=== PATIENT | female | born 1975 | race Two or more races ===

== ENCOUNTER 2017-03-05 22:50 | Emergency (ER) | payer OTHER ==
--- NOTE | 2017-03-05 22:55 | PDOC ---
History of Present Illness - General Chief Complaint: Toothache Stated Complaint: TOOTH ABSCESS Time Seen by Provider: 03/05/17 22:55 History Source: Patient Exam Limitations: No Limitations - History of Present Illness Initial Comments: 03/05/17 23:22 This is a 41-year-old female who comes in complaining of a infected dental carry. Patient said that she has been seeing a dentist at a dental clinic and they cannot see the dentist until Wednesday. Patient has had increased pain and swelling and discomfort in her mouth for 2 days. Patient took ibuprofen 800 mg 3 times a day with out relief of the pain. Patient has subjective fever but is afebrile here PAST MEDICAL HISTORY: no significant history PAST SURGICAL HISTORY: no significant history FAMILY HISTORY: no pertinant history SOCIAL HISTORY: Pt lives with family and is employed. MEDICATIONS: reviewed ALLERGIES: As per nursing notes Review of Systems General: No fevers or chills, no weakness, no weight loss HEENT: No change in vision. No sore throat,. No ear pain, toothache and mouth pain CardioVascular: No chest pain or shortness of breath Respiratory:No cough, or wheezing. Gastrointestinal: no nausea, vomitting, diarrhea or constipation, No rectal bleeding Genitourinary: No dysuria, hematuria, or frequency Musculoskeletal: No joint or muscle pain or swelling Neurologic: No headache, vertigo, dizziness or loss of consciousness Psychiatric: nor depression Skin: No rashes or easy bruising Endocrine: no increased thirst or abnormal weight change Allergic: no skin or latex allergy All other systems reviewed and normal GENERAL: The patient is awake, alert, and fully oriented, in no acute distress. HEAD: Normal with no signs of trauma. EYES: Pupils equal, round and reactive to light, extraocular movements intact, sclera anicteric, conjunctiva clear. MOUTH/TEETH: There is very poor dentition, left lower molars are nearly completely destroyed by caries there is a and associated peridental infection but no palpable collection or abscess. EXTREMITIES: Normal range of motion, no edema. NEUROLOGICAL: Normal speech, normal gait. PSYCH: Normal mood, normal affect. SKIN: Warm, Dry, normal turgor, no rashes or lesions noted. Assessment and plan: This is a 41-year-old female with poor dentition and a oral infection secondary to the poor dentition. Patient started on clindamycin, given Toradol and Percocet for pain as discharged home. Patient has an appointment for Wednesday to see her dentist at the dental clinic. Past History - Past Medical History Allergies/Adverse Reactions: Allergies Allergy/AdvReac Type Severity Reaction Status Date / Time No Known Allergies Allergy Unverified 03/05/17 22:55 Home Medications: Ambulatory Orders Clindamycin [Cleocin -] 300 mg PO Q6HPO #28 capsule 03/05/17 Ibuprofen 800 mg PO TID PRN 03/05/17 Oxycodone HCl/Acetaminophen [Percocet 5-325 mg Tablet] 1 tab PO Q4H PRN #10 tablet MDD 6 03/05/17 *DC/Admit/Observation/Transfer Diagnosis at time of Disposition: Dental caries, Infection of mouth - Discharge Dispostion Disposition: HOME Condition at time of disposition: Stable - Prescriptions Prescriptions: Clindamycin [Cleocin -] 300 mg PO Q6HPO #28 capsule Oxycodone HCl/Acetaminophen [Percocet 5-325 mg Tablet] 1 tab PO Q4H PRN #10 tablet MDD 6 PRN Reason: Pain - Patient Instructions Printed Discharge Instructions: DI for Dental Pain, DI for Tooth Decay Additional Instructions: Make sure you see your dentist on Wednesday For the pain take ibuprofen 8R milligrams 3 times a day with food during the day at nighttime if he needs something stronger you can take 1 Percocet before bed and another one during the night. Return to the emergency department immediately with ANY new, persistent or worsening symptoms. Continue any medications as previously prescribed by your physician. You should follow up with your dentist as soon as possible regarding today's emergency department visit. . Please make sure your dentist reviews the results of your emergency evaluation. Thank you for coming to the Emergency Department today for your care. It was a pleasure to see you today. Please note that your evaluation is INCOMPLETE until you follow-up with your doctor.
[2017-03-05 22:59] VITALS: BP 116/86; PULSE 99; TEMP 98.3; BMI 33.4
[2017-03-05] MEDS ORDERED: KETOROLAC TROMETHAMINE 60 MG/2 ML VIAL IM ONE (23:19)
[2017-03-05] MEDS ORDERED: CLINDAMYCIN HCL 300 MG CAPSULE PO ONE (23:20)
[2017-03-05] MEDS ORDERED: KETOROLAC TROMETHAMINE 60 MG/2 ML VIAL ONE (23:20)
[2017-03-05] MEDS ORDERED: OXYCODONE/APAP 5/325MG COMBO TABLET PO ONE (23:20)
[2017-03-05] MEDS ORDERED: OXYCODONE/APAP 5/325MG COMBO TABLET ONE (23:20)
[2017-03-05] MEDS ORDERED: CLINDAMYCIN HCL 150 MG CAPSULE (FP) ONE (23:21)
== END 2017-03-05 23:34 | disposition home or self-care (01) ==
LOC: FER 22:50
PROC: 3E0233Z Introduction of Anti-inflammatory into Muscle, Percutaneous Approach (ICD-10-PCS; principal; 2017-03-05)
DX: K02.9 Dental caries, unspecified (principal); B99.9 Unspecified infectious disease
CPT/HCPCS: 96372; 99282-25

== ENCOUNTER 2017-04-03 12:35 | Emergency (ER) | payer OTHER ==
--- NOTE | 2017-04-03 12:37 | PDOC ---
History of Present Illness - General Chief Complaint: Nausea/Vomiting Stated Complaint: N/V/D/ ABD PAIN Time Seen by Provider: 04/03/17 12:37 History Source: Patient Exam Limitations: No Limitations - History of Present Illness Initial Comments: 04/03/17 12:37 The patient is a 41-year-old female with a significant past medical history of prediabetes, who presents to the emergency department complaining of nausea, vomiting, diarrhea abdominal pain for the past 11 months. She states that approximately 11 months ago, after she developed symptoms of abdominal pain, nausea, vomiting, diarrhea, and "saw a worm in her stool" she was evaluated by a physician at another hospital and told she "had a parasitic infection." She was given approximately one week of antiparasitic medications and then followed up with her infectious disease specialist. Since that time. She states that her infectious disease specialist is informed her that she has an ongoing parasitic infection, but that she is unsure of the type of parasite. According to the patient, because of the lack of a definitive diagnosis, she has not been treated. The past 11 months, consequently, she has had intermittent abdominal pain, daily nausea, occasional vomiting, daily diarrhea (2-3 episodes of watery stool with occasional mucus). She denies fever, chills, sweats, anorexia, weight loss. She states that she has had an intermittent cough, with intermittent blood- tinged sputum. She denies any rash. 04/03/17 12:51 Past History - Past Medical History Allergies/Adverse Reactions: Allergies Allergy/AdvReac Type Severity Reaction Status Date / Time No Known Allergies Allergy Verified 04/03/17 12:36 Home Medications: Ambulatory Orders NK [No Known Home Medication] 04/03/17 Diabetes: Yes (BORDERLINE) - Psycho/Social/Smoking Cessation Hx Anxiety: No Suicidal Ideation: No Smoking History: Never smoked Review of Systems - Review of Systems Comments:: 04/03/17 12:38 CONSTITUTIONAL: Absent: fever, chills, diaphoresis, generalized weakness, malaise, loss of appetite HEENT: Absent: rhinorrhea, nasal congestion, throat pain, throat swelling, difficulty swallowing, mouth swelling, ear pain, eye pain, visual Changes CARDIOVASCULAR: Absent: chest pain, loss of consciousness, palpitations, irregular heart rate, peripheral edema RESPIRATORY: Present: Cough Absent: cough, dyspnea with exertion, orthopnea, wheezing, stridor, hemoptysis GASTROINTESTINAL: Present: see HPI Absent: abdominal distension, constipation, melena, hematochezia GENITOURINARY: Absent: dysuria, frequency, urgency, hesitancy, hematuria, flank pain, genital pain MUSCULOSKELETAL: Absent: myalgia, arthralgia, joint swelling SKIN: Absent: rash, itching, pallor HEMATOLOGIC/IMMUNOLOGIC: Absent: easy bleeding, easy bruising, lymphadenopathy, frequent infections ENDOCRINE: Absent: unexplained weight gain, unexplained weight loss, heat intolerance, cold intolerance NEUROLOGIC: Absent: headache, focal weakness or paresthesias, dizziness, unsteady gait, seizure, mental status changes, bladder or bowel incontinence PSYCHIATRIC: Absent: anxiety, depression, suicidal or homicidal ideation, hallucinations. 04/03/17 12:52 *Physical Exam - Physical Exam Comments: 04/03/17 12:39 GENERAL: Obese Well developed, well nourished. Awake and alert. No acute distress. HEENT: Normocephalic, atraumatic. PERRLA, EOMI. No conjunctival pallor. Sclera are non- icteric. Moist mucous membranes. Oropharynx is clear. NECK: Supple. Full ROM. No JVD. Carotid pulses 2+ and symmetric, without bruits. No thyromegaly. No lymphadenopathy. CARDIOVASCULAR: Regular rate and rhythm. No murmurs, rubs, or gallops. Distal pulses are 2+ and symmetric. PULMONARY: No evidence of respiratory distress. Lungs clear to auscultation bilaterally. No wheezing, rales or rhonchi. ABDOMINAL: Soft. Non-tender. Non-distended. No rebound or guarding. No organomegaly. Normoactive bowel sounds. MUSCULOSKELETAL Normal range of motion at all joints. No bony deformities or tenderness. No CVA tenderness. EXTREMITIES: No cyanosis. No clubbing. No edema. No calf tenderness. SKIN: Warm and dry. Normal capillary refill. No rashes. No jaundice. NEUROLOGICAL: Alert, awake, appropriate. Cranial nerves 2-12 intact. No deficits to light touch and temperature in face, upper extremities and lower extremities. No motor deficits in the in face, upper extremities and lower extremities. Normoreflexic in the upper and lower extremities. Normal speech. Toes are down- going bilaterally. Gait is normal without ataxia. PSYCHIATRIC: Cooperative. Good eye contact. Appropriate mood and affect. 04/03/17 12:52 ED Treatment Course - LABORATORY CBC & Chemistry Diagram: 04/03/17 13:00 04/03/17 13:00 Medical Decision Making - Medical Decision Making 04/03/17 13:00 The patient is well-appearing and in no acute distress She very clearly states that she does not have abdominal pain at this time Her abdomen is soft and nontender Given her reported symptoms, will obtain labs including stool specimens for parasites, CT of the abdomen and pelvis, chest x-ray 04/03/17 13:11 Chest x-ray emergency Department interpretation: No acute cardiopulmonary disease 04/03/17 14:04 Labs noted with mild leukocytosis, but no eosinophilia CT pending 04/03/17 15:20 CT report noted: Minimal concentric wall thickening of the terminal ileum Repeat abdominal exam: non-tender She continues to be very well appearing She has been afebrile. We discussed the risks and benefits of antibiotic therapy and she declined. At this point I do not feel that her CT findings represent acute bacterial enteritis and I feel that her choice is appropriate. Clinical impression: Chronic abdominal pain I have strongly advised her to follow up with her infectious disease specialist for further evaluation, and I have referred her to gastroenterology. I discussed the physical exam findings, ancillary test results and final diagnoses with the patient. I answered all of the patient's questions. The patient was satisfied with the care received and felt comfortable with the discharge plan and treatment plan. The patient will call their primary care physician within 24 hours to arrange follow-up and will return to the Emergency Department with any new, persistent or worsening symptoms. 04/03/17 15:22 04/03/17 15:31 CRP pending She does not want to await results *DC/Admit/Observation/Transfer Diagnosis at time of Disposition: Abdominal pain - Discharge Dispostion Disposition: HOME Condition at time of disposition: Stable - Referrals Referrals: Edinson Conroy MD [Staff Physician] - Call tomorrow - Patient Instructions Printed Discharge Instructions: DI for Abdominal Pain-Adult Additional Instructions: Return to the emergency department immediately with ANY new, persistent or worsening symptoms. It is very important that you see your infectious disease specialist for these ongoing symptoms, and that you also follow up with a mother repairer to whom I have referred you. You cat scan did show some minimal thickening in a part of your small intestine known as the terminal ileum and this should be followed up. You MUST call and follow up with your doctor tomorrow. Please make sure your doctor reviews the results of your emergency department evaluation. - Post Discharge Activity Work/School Note: Back to Work
[2017-04-03 12:40] VITALS: BMI 32.8
[2017-04-03] MEDS ORDERED: SODIUM CHLORIDE 1,000 ML IV STA (12:53)
[2017-04-03] MEDS ORDERED: ONDANSETRON 4 MG/2 ML VIAL ONE (12:53)
[2017-04-03] MEDS ORDERED: ONDANSETRON 4 MG/2 ML VIAL IVPB ONE (12:53)
[2017-04-03 13:05] LABS: BASOPHIL 1.6 % (0-2.0); EOSINOPHIL 4.2 % (0-4.5); MCH 30.2 pg (25.7-33.7); MCHC 33.7 g/dl (32.0-36.0); MEAN CELL VOLUME 89.7 fl (80-96); MEAN PLT VOLUME 8.9 fl (7.5-11.1); PLATELET COUNT 339 K/MM3 (134-434); RDW 13.4 % (11.6-15.6); WHITE BLOOD COUNT 11.9 K/mm3 (4.0-10.8)
[2017-04-03] MEDS ORDERED: ACETAMINOPHEN INJECTION 100 ML IVPB ONE (13:07)
[2017-04-03 13:21] LABS: ALBUMIN 3.7 g/dl (3.5-5.0); ALK PHOS 66 U/L (32-92); ANION GAP 9 (8-16); BILIRUBIN,TOTAL 0.6 mg/dl (0.2-1.0); CALCIUM 9.3 mg/dl (8.4-10.2); CO2 24 mmol/L (22-28); COCKROFT - GAULT 125.9445; CREATININE 0.9 mg/dl (0.6-1.3); GLUCOSE,RANDOM 146 mg/dl (74-106); SGOT/AST 17 U/L (10-42); SGPT/ALT 15 U/L (10-40); TOT PROT 6.9 g/dl (6.4-8.3)
[2017-04-03] MEDS ORDERED: ACETAMINOPHEN 1000 MG/100 ML VIAL (NON FORMULARY) IVPB ONE (13:22)
[2017-04-03 15:09] VITALS: BP 138/82; PULSE 60; TEMP 98.2
--- NOTE | 2017-04-05 10:44 | EKG ---
Test Reason : Blood Pressure : / mmHG Vent. Rate : 051 BPM Atrial Rate : 051 BPM P-R Int : 182 ms QRS Dur : 084 ms QT Int : 418 ms P-R-T Axes : 048 054 041 degrees QTc Int : 385 ms SINUS BRADYCARDIA OTHERWISE NORMAL ECG NO PREVIOUS ECGS AVAILABLE Confirmed by SARAH VILLARREAL MD ([id number]) on 04/05/2017 10:44:14 AM Referred By: TATA GAMBOA Confirmed By:SARAH VILLARREAL MD
== END 2017-04-03 15:39 | disposition home or self-care (01) ==
LOC: FER 12:35
PROC: 3E033NZ Introduction of Analgesics, Hypnotics, Sedatives into Peripheral Vein, Percutaneous Approach (ICD-10-PCS; principal; 2017-04-03)
PROC: 3E033GC Introduction of Other Therapeutic Substance into Peripheral Vein, Percutaneous Approach (ICD-10-PCS; 2017-04-03)
PROC: 3E0337Z Introduction of Electrolytic and Water Balance Substance into Peripheral Vein, Percutaneous Approach (ICD-10-PCS; 2017-04-03)
DX: R10.9 Unspecified abdominal pain (principal)
CPT/HCPCS: 36415; 71020-TC; 74176-TC; 80053; 83690; 85025; 86140; 93005; 96361; 96374; 96375; 99283-25

== ENCOUNTER 2017-05-12 21:35 | Emergency (ER) | payer SELFPAY ==
[2017-05-12 21:40] VITALS: BP 142/79; PULSE 76; TEMP 98.9; BMI 33.4
--- NOTE | 2017-05-12 21:45 | PDOC ---
History of Present Illness - History of Present Illness Initial Comments: 05/12/17 21:55 The patient is a 41 year old female, with a significant past medical history of chronic nausea/vomiting (followed by Juliette), who presents to the emergency department with generalized weakness, nausea, vomiting, diarrhea, and diffuse abdominal pain today. She reports she has been experiencing these symptoms for many years, and reports recently sending a stool sample to her PCP (an infectious disease specialist), but states she has not received the results from the specimen yet. She states her symptoms were suddenly exacerbated today and reports numerous episodes of nonbilious/nonbloody emesis and nonbloody diarrhea. She denies aggravating or alleviating factors for her symptoms. She reports having an abdominal CT scan a week ago. She denies chest pain, shortness of breath, headache and dizziness. She denies fever, chills, and constipation. She denies dysuria, frequency, urgency and hematuria. Adult PAST MEDICAL HISTORY: no significant history PAST SURGICAL HISTORY: no significant history FAMILY HISTORY: no pertinent history SOCIAL HISTORY: Pt lives with family and is employed. Denies illicit drug use. MEDICATIONS: reviewed ALLERGIES: As per nursing notes Adult ROS General: (+) generalized weakness, No fevers or chills, no weight loss HEENT: No change in vision. No sore throat,. No ear pain CardioVascular: No chest pain or shortness of breath Respiratory:No cough, or wheezing. Gastrointestinal: (+) nausea, vomiting, diarrhea, and abdominal pain; No constipation, No rectal bleeding Genitourinary: No dysuria, hematuria, or frequency Musculoskeletal: No joint or muscle pain or swelling Neurologic: No headache, vertigo, dizziness or loss of consciousness Psychiatric: nor depression Skin: No rashes or easy bruising Endocrine: no increased thirst or abnormal weight change Allergic: no skin or latex allergy All other systems reviewed and normal Adult Exam: General: Well-nourished well-developed individual, no acute distress HEENT: Throat: Normal, tonsils normal, no erythema or exudate Neck: Supple, no meningeal signs, no lymphadenopathy Eyes::Pupils equal reactive and round, extraocular motion intact Chest: Nontender to palpation Cardiac: S1-S2 normal, regular rate and rhythm, no murmurs rubs or gallops Respiratory: Lungs clear to auscultation bilateral Abdomen: Soft, nondistended, normal bowel sounds, nontender to palpation diffusely Extremities: Warm, dry, no cyanosis, clubbing, or edema Skin: No rashes Neuro: Alert and oriented x3, nonfocal exam, grossly intact, normal gait Psych: Normal mood and affect <Giovana Serna - Last Filed: 05/12/17 21:55> - General History Source: Patient Exam Limitations: No Limitations <Prabhakar Tillman I - Last Filed: 05/12/17 23:01> - General Chief Complaint: Pain Stated Complaint: ABD PAIN N/V Time Seen by Provider: 05/12/17 21:37 Past History <Giovana Serna - Last Filed: 05/12/17 21:55> - Past Medical History Diabetes: Yes (BORDERLINE) - Psycho/Social/Smoking Cessation Hx Anxiety: No Suicidal Ideation: No Smoking History: Unknown if ever smoked Have you smoked in the past 12 months: No Number of Cigarettes Smoked Daily: 0 Information on smoking cessation initiated: No Hx Alcohol Use: No Drug/Substance Use Hx: No Substance Use Type: None <Prabhakar Tillman I - Last Filed: 05/12/17 23:01> - Past Medical History Allergies/Adverse Reactions: Allergies Allergy/AdvReac Type Severity Reaction Status Date / Time No Known Allergies Allergy Verified 04/03/17 12:36 Home Medications: Ambulatory Orders Hyoscyamine Odt [Levsin Odt -] 0.125 mg PO DAILY #15 tab.rapdis 05/12/17 Ondansetron [Zofran *Odt*] 8 mg SL TID #21 od.tablet 05/12/17 *Physical Exam - Vital Signs Last Vital Signs Temp Pulse Resp BP Pulse Ox 98.9 F 76 14 142/79 99 05/12/17 21:36 05/12/17 21:36 05/12/17 21:36 05/12/17 21:36 05/12/17 21:36 <Giovana Serna - Last Filed: 05/12/17 21:55> - Vital Signs Last Vital Signs Temp Pulse Resp BP Pulse Ox 98.9 F 76 14 142/79 99 05/12/17 21:36 05/12/17 21:36 05/12/17 21:36 05/12/17 21:36 05/12/17 21:36 <Prabhakar Tillman I - Last Filed: 05/12/17 23:01> ED Treatment Course - LABORATORY CBC & Chemistry Diagram: 05/12/17 22:02 05/12/17 22:02 <Prabhakar Tillman I - Last Filed: 05/12/17 23:01> *DC/Admit/Observation/Transfer - Attestations Scribe Attestion: 05/12/17 21:58 Documentation prepared by Giovana Serna, acting as medical physics professor for Prabhakar Tillman MD <Giovana Serna - Last Filed: 05/12/17 21:55> - Discharge Dispostion Admit: No <Prabhakar Tillman I - Last Filed: 05/12/17 23:01> Diagnosis at time of Disposition: Abdominal pain Qualifiers: Abdominal location: unspecified location Qualified Code(s): R10.9 - Unspecified abdominal pain Nausea and vomiting Qualifiers: Vomiting type: unspecified Vomiting Intractability: non-intractable Qualified Code(s): R11.2 - Nausea with vomiting, unspecified - Discharge Dispostion Disposition: HOME Condition at time of disposition: Good - Prescriptions Prescriptions: Hyoscyamine Odt [Levsin Odt -] 0.125 mg PO DAILY #15 tab.rapdis Ondansetron [Zofran *Odt*] 8 mg SL TID #21 od.tablet - Patient Instructions Additional Instructions: For nausea U can take Zofran 1 tablet as often as 3 times a day H is all under your tongue. For abdominal pain/cramping take hyoscyamine one tablet T is all under your tongue as often as once a day. Return to the emergency department immediately with ANY new, persistent or worsening symptoms. Continue any medications as previously prescribed by your physician. You should follow up with your primary doctor as soon as possible regarding today's emergency department visit. . Please make sure your doctor reviews the results of your emergency evaluation. Thank you for coming to the Emergency Department today for your care. It was a pleasure to see you today. Please note that your evaluation is INCOMPLETE until you follow-up with your doctor.
[2017-05-12 22:16] LABS: BASOPHIL 1.9 % (0-2.0); EOSINOPHIL 4.1 % (0-4.5); MCH 30.9 pg (25.7-33.7); MEAN CELL VOLUME 88.3 fl (80-96); MEAN PLT VOLUME 9.2 fl (7.5-11.1); NEUTROPHILS 66.5 % (42.8-82.8); PLATELET COUNT 279 K/MM3 (134-434); RDW 12.9 % (11.6-15.6)
[2017-05-12 22:35] LABS: ALBUMIN 3.5 g/dl (3.5-5.0); ALK PHOS 58 U/L (32-92); ANION GAP 5 (8-16); CALCIUM 8.5 mg/dl (8.4-10.2); CO2 27 mmol/L (22-28); CREATININE 0.9 mg/dl (0.6-1.3); GLUCOSE,RANDOM 103 mg/dl (74-106); SGOT/AST 15 U/L (10-42); SGPT/ALT 10 U/L (10-40); TOT PROT 6.4 g/dl (6.4-8.3)
[2017-05-12] MEDS ORDERED: POTASSIUM CHLORIDE TABS 20 MEQ TABLET.ER (FP) PO ONE ×2 (22:55→22:59)
[2017-05-12 23:16] LABS: BILIRUBIN,TOTAL < 0.3 mg/dl (0.2-1.0)
== END 2017-05-12 23:08 | disposition home or self-care (01) ==
LOC: FER 21:35
DX: R11.2 Nausea with vomiting, unspecified (principal); R10.9 Unspecified abdominal pain
CPT/HCPCS: 36415; 80053; 85025; 99283-25

== ENCOUNTER 2017-11-12 12:59 | Emergency (ER) | payer SELFPAY ==
[2017-11-12 13:04] VITALS: BP 130/77; PULSE 83; TEMP 98.3; BMI 30.4
[2017-11-12] MEDS ORDERED: OSELTAMIVIR PHOSPHATE 75 MG CAPSULE PO ONE (13:42)
[2017-11-12] MEDS ORDERED: ALBUTEROL SO4 2.5/IPRATROPIUM 0.5 INH SOL 3 ML VIAL.NEB. NEB ONE ×2 (13:42→13:46)
--- NOTE | 2017-11-12 13:45 | PDOC ---
History of Present Illness - General Chief Complaint: Respiratory Stated Complaint: COUGH & COLD SX, SORE THROAT Time Seen by Provider: 11/12/17 13:33 History Source: Patient Exam Limitations: No Limitations - History of Present Illness Initial Comments: 11/12/17 13:52 This is a 41-year-old female who comes in complaining of proximal at least 7 days now of cough congestion, fever, chills, and body aches. Patient's cough is productive of yellow phlegm. Patient is also complaining of some pleuritic type chest pain. Patient denies any headache or neck stiffness. Patient denies any sore throat. Patient denies any nausea or vomiting. Patient denies any rashes. Patient did not get a flu shot this year. Patient has been taking Mucinex without relief of the cough PAST MEDICAL HISTORY: no significant history PAST SURGICAL HISTORY: Hysterectomy FAMILY HISTORY: no pertinant history SOCIAL HISTORY: Pt lives with family and is employed. MEDICATIONS: reviewed ALLERGIES: As per nursing notes Review of Systems General: + fevers or chills, no weakness, no weight loss HEENT: No change in vision. No sore throat,. No ear pain CardioVascular: No chest pain or shortness of breath Respiratory:+ cough, or wheezing. Gastrointestinal: no nausea, vomitting, diarrhea or constipation, No rectal bleeding Genitourinary: No dysuria, hematuria, or frequency Musculoskeletal: No joint or muscle pain or swelling Neurologic: No headache, vertigo, dizziness or loss of consciousness Psychiatric: nor depression Skin: No rashes or easy bruising Endocrine: no increased thirst or abnormal weight change Allergic: no skin or latex allergy All other systems reviewed and normal Exam: General: Well-nourished well-developed individual, no acute distress HEENT: Throat: Normal, tonsils normal, no erythema or exudate Neck: Supple, no meningeal signs, no lymphadenopathy Eyes::Pupils equal reactive and round, extraocular motion intact Chest: Nontender to palpation Cardiac: S1-S2 normal, regular rate and rhythm, no murmurs rubs or gallops Respiratory: Patient has some bilateral mild expiratory wheezing otherwise lungs are clear Abdomen: Soft, nondistended, normal bowel sounds, nontender to palpation diffusely Extremities: Warm, dry, no cyanosis, clubbing, or edema Skin: No rashes Neuro: Alert and oriented x3, CN II - XII intact, nonfocal exam with normal strength, normal sensation, normal reflexes, normal gait, Psych: Normal mood and affect 11/12/17 14:27 Chest x-ray questionable some peribronchial thickening on the right base otherwise no acute pathology Assessment and plan: This is a 41-year-old female comes in complaining of cough congestion with yellowish-green phlegm and on my exam patient had some expiratory wheezing. Patient was given a nebulizer treatment with resolution of her wheezing. Chest x-ray was done that shows probable mild early bronchitis. Patient was started on Z-Rodrigue A prescription for a metered dose inhaler of albuterol was sent patient's pharmacy You the patient didn't receive the flu shot it has been 7 days of symptoms so Tamiflu is not indicated Patient discharged home will follow-up with her primary care doctor Patient given note for no work until the which is Wednesday Past History - Past Medical History Allergies/Adverse Reactions: Allergies Allergy/AdvReac Type Severity Reaction Status Date / Time No Known Allergies Allergy Verified 11/12/17 13:00 Home Medications: Ambulatory Orders Albuterol Sulfate Inhaler - [Ventolin Hfa Inhaler -] 1 - 2 inh PO Q4H #1 inhaler 11/12/17 Azithromycin 250 mg PO DAILY #4 tablet 11/12/17 Guaifenesin [Mucinex] 600 mg PO ASDIR 11/12/17 COPD: No Diabetes: Yes (BORDERLINE) - Suicide/Smoking/Psychosocial Hx Smoking History: Current every day smoker Have you smoked in the past 12 months: Yes Number of Cigarettes Smoked Daily: 10 Information on smoking cessation initiated: Yes 'Breaking Loose' booklet given: 11/12/17 Hx Alcohol Use: No Drug/Substance Use Hx: No Substance Use Type: None *Physical Exam - Vital Signs Last Vital Signs Temp Pulse Resp BP Pulse Ox 98.3 F 83 18 130/77 96 11/12/17 13:00 11/12/17 13:00 11/12/17 13:00 11/12/17 13:00 11/12/17 13:00 *DC/Admit/Observation/Transfer Diagnosis at time of Disposition: Asthmatic bronchitis Qualifiers: Asthma severity: mild Asthma persistence: intermittent Asthma complication type : uncomplicated Qualified Code(s): J45.20 - Mild intermittent asthma, uncomplicated - Discharge Dispostion Disposition: HOME Condition at time of disposition: Stable Admit: No - Prescriptions Prescriptions: Albuterol Sulfate Inhaler - [Ventolin Hfa Inhaler -] 1 - 2 inh PO Q4H #1 inhaler Azithromycin 250 mg PO DAILY #4 tablet - Referrals - Patient Instructions Additional Instructions: Take azithromycin 1 tablet a day for the next 4 days you were given the first tablet now also take the next tablet tomorrow around lunchtime. Use your inhaler 2 puffs as often as every 4-6 hours as needed for shortness of breath and cough. Return to the emergency department immediately with ANY new, persistent or worsening symptoms. Continue any medications as previously prescribed by your physician. You should follow up with your primary doctor as soon as possible regarding today's emergency department visit. . Please make sure your doctor reviews the results of your emergency evaluation. Thank you for coming to the Emergency Department today for your care. It was a pleasure to see you today. Please note that your evaluation is INCOMPLETE until you follow-up with your doctor. - Post Discharge Activity Forms/Work/School Notes: Back to Work
[2017-11-12] MEDS ORDERED: OSELTAMIVIR PHOSPHATE 75 MG CAPSULE ONE (13:46)
[2017-11-12] MEDS ORDERED: AZITHROMYCIN 250 MG TABLET PO ONE (14:27)
[2017-11-12] MEDS ORDERED: AZITHROMYCIN 250 MG TABLET ONE (14:28)
== END 2017-11-12 14:40 | disposition home or self-care (01) ==
LOC: FER 12:59
PROC: 3E0F7GC Introduction of Other Therapeutic Substance into Respiratory Tract, Via Natural or Artificial Opening (ICD-10-PCS; principal; 2017-11-12)
DX: J45.20 Mild intermittent asthma, uncomplicated (principal); F17.210 Nicotine dependence, cigarettes, uncomplicated; R73.03 Prediabetes
CPT/HCPCS: 71046-TC; 99283-25